=== PATIENT | male | born 1955 | race Caucasian/White ===

== ENCOUNTER 2023-09-27 12:36 | Outpatient (CLI) | payer MEDICARE, SELFPAY ==
--- NOTE | ~2023-09-27 | PE_ITS ---
EXAMINATION: PET_PETPSMAST_PT DATE: 09/27/2023 15:26 INDICATION: Prostate cancer TECHNIQUE: 8.872 mCi of pipflufolastat F-18 (18-F-DCFPyL) was administered i.v. Low dose computed to mography (CT) images were acquired from the base of the brain to the base of the brain to the proxima l thighs for attenuation correction and anatomic localization. Positron emission tomography (PET) desiree ges were acquired in the same distribution beginning 96 minutes after injection. Images including fus ed PET/CT images were reconstructed in axial, coronal, and sagittal planes. Automated exposure contro l technique was employed. The dose-length product was 611.89mGy-cm. COMPARISON: None FINDINGS: Head/neck: Typical pattern of symmetric physiologic increased activity in the lacrimal, parotid and submandibula r glands as well as along the mucosa of the nasal and oral cavities, the darian-, naso- and hypopharynx, the glottis and esophagus. There is also a typical pattern of symmetric tiny foci of mild likely phy siologic neural ganglia uptake at a few bilateral cervical neural foramina. No pathologically enlarge d cervical lymphadenopathy or suspicious foci of increased uptake in the visualized head or neck. Chest: Curvilinear mild atelectasis anterior and right middle lobe and posteriorly in the dependent bilatera l lower lobes. Cluster of a few <4 mm nodules at least a few of which appear calcified in the anterio r basilar right lower lobe which along with calcified right hilar and mediastinal lymph nodes are con sistent with old granulomatous disease. There is no associated increased PSMA activity. No pleural ef fusion. Heart size is normal. Atherosclerotic coronary artery calcification is. No pericardial effusi on. Thoracic aorta is normal in caliber. No pathologically enlarged or PSMA avid thoracic lymphadenop athy. Abdomen/pelvis/proximal thighs: Physiologic renal accumulation and excretion of activity in the kidneys, bladder and along portions o f ureters. There are 2 foci of increased uptake in the prostate, the larger and more intense on the r ight with maximal SUV of 5.8 and the smaller and less intense with maximal SUV of 4.3 on the left. No rmal degree and slightly heterogenous pattern of increased uptake throughout the liver and spleen wit hout radiologic correlate or dominant PSMA avid lesion. Multiple small calcifications in the spleen a nd a few in the liver consistent with old granulomatous disease. The gallbladder, pancreas and bilate ral adrenal glands are normal. Moderate uptake scattered throughout the bowels with typical duodenal and proximal jejunal predominance and without radiologic correlate, also likely physiologic. There is mild colonic diverticulosis with a sigmoid and descending colon predominance but without adjacent in flammatory change to suggest diverticulitis. Normal appendix. No other abnormal foci of increased upt hien or pathologically enlarged lymphadenopathy in the abdomen, pelvis or proximal thighs. Mild diffus e from infrarenal abdominal aortic aneurysm measuring up to 3.8 cm in maximal diameter. Musculoskeletal: No suspicious lytic, blastic or PSMA avid bone lesions. IMPRESSION: 1. Couple foci of mild increased uptake in the left and right sides of the prostate consistent with p rimary prostate cancer. No other more remote PSMA avid lesions to suggest metastatic disease. 2. Mild fusiform infrarenal abdominal aortic aneurysm measuring up to 3.8 cm maximal diameter. Reviewed, dictated and finalized at location A. [facility] [employer] IMPRESSION: 1. Couple foci of mild increased uptake in the left and right sides of the pros kelly consistent with primary prostate cancer. No other more remote PSMA avid le sions to suggest metastatic disease. 2. Mild fusiform infrarenal abdominal aortic aneurysm measuring up
== END 2023-09-27 12:37 | disposition home or self-care (01) ==
PROVIDERS: Visit Provider Urology
DX: C61 Malignant neoplasm of prostate (principal); I71.43 Infrarenal abdominal aortic aneurysm, without rupture
CPT/HCPCS: 78815; A9595